=== PATIENT | male | born 1990 | race Caucasian/White ===

== ENCOUNTER 2016-11-11 13:34 | Emergency (ER) | payer OTHER ==
[~2016-11-11] VITALS: Ht 175.3 cm; Wt 70.0 kg
[~2016-11-11 13:34] MED LIST: MOM PO; MP PO; OLANZAPINE7.5 MG PO; RISPERIDAL; TYLENOL325 MG PO
[2016-11-11 14:31] VITALS: BP 123/79
== END 2016-11-11 15:35 | disposition left against medical advice (07) ==
LOC: ED 13:34
DX: F41.9 Anxiety disorder, unspecified (principal); F31.9 Bipolar disorder, unspecified; F20.9 Schizophrenia, unspecified
CPT/HCPCS: 80307; G0480

== ENCOUNTER 2017-07-15 10:43 | Emergency (ER) | payer OTHER ==
[~2017-07-15] VITALS: Ht 177.8 cm; Wt 70.8 kg
[2017-07-15 10:59] VITALS: Ht 177.8 cm; Wt 70.8 kg
[2017-07-15 14:49] VITALS: BP 126/56
== END 2017-07-15 15:05 | disposition home or self-care (01) ==
LOC: ED 10:43
DX: J09.X2 Influenza due to identified novel influenza A virus with other respiratory manifestations (principal)
CPT/HCPCS: 87804

== ENCOUNTER 2019-03-24 15:59 | Emergency (ER) | payer OTHER ==
[~2019-03-24] VITALS: Ht 175.3 cm; Wt 80.3 kg
[2019-03-24 16:12] VITALS: Ht 175.3 cm; Wt 80.3 kg
[2019-03-24 17:18] VITALS: BP 121/74
== END 2019-03-24 17:18 | disposition home or self-care (01) ==
LOC: ED 15:59
DX: S61.251A Open bite of left index finger without damage to nail, initial encounter (principal); F31.9 Bipolar disorder, unspecified; F41.9 Anxiety disorder, unspecified; W55.01XA Bitten by cat, initial encounter; Y93.89 Activity, other specified; Y92.89 Other specified places as the place of occurrence of the external cause; Y99.8 Other external cause status
CPT/HCPCS: 90715